=== PATIENT | male | born 1945 | race Caucasian/White ===

== ENCOUNTER 2022-02-06 15:39 | Emergency (ER) | payer OTHER ==
[~2022-02-06] VITALS: Ht 172.7 cm; Wt 81.8 kg
[~2022-02-06 15:39] MED LIST: CYCL-448 PO; LISI-894 PO; OMEP20 PO
[2022-02-06] MEDS ORDERED: PERTUSS(ACELL),DIPH,TET VAC/PF 0.5 ML SYRINGE IM. ONE (16:30)
[2022-02-06] MEDS ORDERED: LIDOCAINE 1% 10 ML VIAL PERC ONE (16:30)
[2022-02-06] MEDS ORDERED: BACITRACIN 0.9 GM PACKET OINTMENT TP ONE (18:00)
[2022-02-06 18:40] VITALS: BP 117/63
== END 2022-02-06 18:41 | disposition home or self-care (01) ==
LOC: EMS 15:50
DX: S61.412A Laceration without foreign body of left hand, initial encounter (principal); I10 Essential (primary) hypertension; F15.90 Other stimulant use, unspecified, uncomplicated; F17.210 Nicotine dependence, cigarettes, uncomplicated; Z88.5 Allergy status to narcotic agent; Z79.899 Other long term (current) drug therapy
CPT/HCPCS: 12001; 90471; 90715; 99283; J3490